=== PATIENT | male | born 1985 | race Caucasian/White ===

== ENCOUNTER 2017-12-02 17:42 | Emergency (ER) | payer MEDICAID ==
[~2017-12-02] VITALS: Ht 175.3 cm; Wt 70.8 kg
--- OUTSIDE RECORDS SUMMARY | ~2017-12-02 | XMS | Clinical Summary ---
Demographics + + + | Address | [address] | | | [place] [address] | + + + | Home Phone | | + + + | Preferred Language | Unknown | + + + | Marital Status | Single | + + + | Jehovah'S Witness Affiliation | Unknown | + + + | Race | Unknown | + + + | Ethnic Group | Unknown | + + + Author + + + | Author | [facility] | | | and [place] | + + + | Organization | [facility] | | | and [place] | + + + | Address | Unknown | + + + | Phone | Unavailable | + + + Support + + +---------+ + | Name | Relationship | Address | Phone | + + +---------+ + | SONIA SWAN ECON | Unknown | | + + +---------+ + Care Team Providers + +------+ + | Care Embossing Calender Operator Name | Role | Phone | + +------+ + PP | Unavailable | + +------+ + Allergies Not on File Current Medications Not on file Active Problems Not on file Social History + +-------+ +--------+------+ | Tobacco Use | Types | Packs/Day | Years | Date | | | | | Used | | + +-------+ +--------+------+ | Never Assessed | | | | | + +-------+ +--------+------+ + + + | Sex Assigned at | Date Recorded | | | | + + + | Not on file | | + + + Plan of Treatment + + + + + | Health Maintenance | Due Date | Last Done | Comments | + + + + + | Vaccine: | | | | | Dtap/Tdap/Td (1 - | 6 | | | | Tdap) | | | | + + + + + | Vaccine: Influenza | | | | | (#1) | 8 | | | + + + + + Results Not on filefrom Last 3 Months"
--- OUTSIDE RECORDS SUMMARY | ~2017-12-02 | XMS | Clinical Summary ---
Demographics + + + | Address | [address] | | | [place] [address] | + + + | Home Phone | | + + + | Preferred Language | Unknown | + + + | Marital Status | Single | + + + | Tenriism Affiliation | Unknown | + + + | Race | Unknown | + + + | Ethnic Group | Unknown | + + + Author + + + | Author | [facility] | | | and [place] | + + + | Organization | [facility] | | | and [...] Team Providers + +------+ + | Care Garnishment Specialist Name | Role | Phone | + [...]
[2017-12-02] MEDS ORDERED: IBUPROFEN200 M1 PO (18:00)
== END 2017-12-02 18:56 | disposition home or self-care (01) ==
LOC: ED 17:42
PROC: 0HQGXZZ Repair Left Hand Skin, External Approach (ICD-10-PCS; principal; 2017-12-02)
DX: S61.217A Laceration without foreign body of left little finger without damage to nail, initial encounter (principal); Z23 Encounter for immunization; W45.8XXA Other foreign body or object entering through skin, initial encounter
CPT/HCPCS: 12001; 90471; 90715; 99282

== ENCOUNTER 2024-07-14 16:21 | Emergency (ER) | payer OTHER ==
[~2024-07-14] VITALS: Ht 175.3 cm; Wt 63.2 kg
[~2024-07-14 16:21] MED LIST: IBUPROFEN200 M1 PO
[2024-07-14] MEDS ORDERED: CEFTRIAXONE SODIUM 2 GM VIAL ONE (18:14)
[2024-07-14] MEDS ORDERED: AZITHROMYCIN 500 MG in DEXTROSE 5% 250 ML IV ONE (18:15)
[2024-07-14] MEDS ORDERED: ondansetron HCL 4 MG/2 ML VIAL IV ONE ×2 (18:15→20:30)
[2024-07-14] MEDS ORDERED: CEFTRIAXONE SODIUM 2 GM in SODIUM CHLORIDE 0.9% 100 ML IV ONE (18:15)
[2024-07-14] MEDS ORDERED: ALBUTEROL/IPRATROPIUM 3 ML NEB INH ONE (18:15)
[2024-07-14] MEDS ORDERED: SODIUM CHLORIDE 0.9% 2,000 ML IV PRN (18:15)
[2024-07-14 18:24] LABS: BASOPHILS 0.2 % (0-2); EOSINOPHILS 0.1 % (0-6); HEMATOCRIT 46.4 % (35.0-50.0); HEMOGLOBIN 16.5 g/dL (12.0-18.0); LYMPHOCYTES 9.2 % (24-44); MCH 29.4 (27-36); MCHC 35.5 g/dl (30-36); MCV 82.8 fl (81-99); NEUTROPHILS 78.5 % (39-80); PLATELET COUNT 195 K/uL (140-440); RDW 13.3 (10.5-15.0)
[2024-07-14 18:40] LABS: PARTIAL THROMBOPLASTIN TIME 31.3 Sec (22.9-41.3); PROTIME 13.1 Sec (11.2-14.2)
[2024-07-14 18:43] LABS: ALBUMIN/GLOBULIN RATIO 1.05 (1.1-2.4); ANION GAP 17.4 (7-21); BILIRUBIN, TOTAL 0.7 mg/dL (0.2-1.0); BUN/CREATININE RATIO 6.74 (6.0-28.6); CALCIUM 8.9 mg/dL (8.5-10.1); CREATININE, SERUM 0.89 mg/dL (0.70-1.30); POTASSIUM 3.4 mmol/L (3.5-5.1); PROTEIN, TOTAL 7.8 g/dL (6.4-8.2)
[2024-07-14 18:48] LABS: LACTIC ACID, BLOOD 2.4 mmol/L (0.4-2.0)
[2024-07-14 20:28] LABS: LACTIC ACID, BLOOD 1.3 mmol/L (0.4-2.0)
[2024-07-14 20:30] LABS: BILIRUBIN, URINE NEGATIVE (negative); BLOOD/HGB, URINE NEGATIVE (Negative); KETONE, URINE SMALL (Negative); LEUK ESTERASE, URINE NEGATIVE (negative); NITRITE, URINE NEGATIVE (negative)
[2024-07-14 20:37] LABS: BACTERIA, URINE NONE SEEN /hpf (negative); CRYSTALS, URINE NONE SEEN (0-1+); EPITHELIAL CELLS, URINE NONE SEEN /lpf (0-1+); RED BLOOD CELLS, URINE 0-1 /hpf (0-5); WHITE BLOOD CELLS, URINE 0-1 /HPF (0-5)
[2024-07-14 20:38] LABS: CASTS, URINE NONE SEEN \\lpf; COLLECTION TYPE, URINE CLEAN CATCH; REFLEX CULTURE, URINE No (No)
[2024-07-14] MEDS ORDERED: ZITHROMAX250 MG PO ×2 (20:56→20:59)
[2024-07-14] MEDS ORDERED: AMOX TR-K CLV1 EAC1 PO ×2 (20:56→20:59)
[2024-07-14] MEDS ORDERED: ONDANSETRON ODT8 MG PO (20:57)
[2024-07-14] MEDS ORDERED: SODIUM CHLORIDE 0.9% 1,000 ML IV PRN (21:00)
[2024-07-14] MEDS ORDERED: PROCHLORPERAZINE EDISYLATE 10 MG/2 ML VIAL IV ONE (21:00)
[2024-07-14 21:23] VITALS: BP 133/81
== END 2024-07-14 21:30 | disposition home or self-care (01) ==
LOC: ED 16:21
PROVIDERS: Emergency Medicine
DX: J18.9 Pneumonia, unspecified organism (principal); H72.91 Unspecified perforation of tympanic membrane, right ear; H66.91 Otitis media, unspecified, right ear; R11.2 Nausea with vomiting, unspecified
CPT/HCPCS: 36415; 51701; 71045; 80053; 81001; 83605; 85025; 85610; 85730; 87040; 87077; 87186; 94640; 99284-25; J0456; J0696; J0780; J2405; J7060

== ENCOUNTER 2024-12-19 20:47 | Emergency (ER) | payer OTHER ==
[~2024-12-19] VITALS: Ht 175.3 cm; Wt 67.3 kg
[~2024-12-19 20:47] MED LIST changes: +AMOX TR-K CLV1 EAC1 PO; +ONDANSETRON ODT8 MG PO; +ZITHROMAX250 MG PO
[2024-12-19] MEDS ORDERED: IBUPROFEN 600 MG TAB PO ONE (21:15)
[2024-12-19] MEDS ORDERED: HYDROCODONE/ACETA 5/325 TAB PO ONE (22:30)
[2024-12-19] MEDS ORDERED: HYDROCODON-ACE1 EA10 PO (22:36)
[2024-12-19] MEDS ORDERED: HYDROCODONE BIT/ACETAMINOPHEN 5/325 MG 1 TAB HOME.PACK PO ONE (22:45)
[2024-12-19 22:52] VITALS: BP 118/76
== END 2024-12-19 22:54 | disposition home or self-care (01) ==
LOC: ED 20:47
DX: S90.02XA Contusion of left ankle, initial encounter (principal); J45.909 Unspecified asthma, uncomplicated; W20.8XXA Other cause of strike by thrown, projected or falling object, initial encounter
CPT/HCPCS: 73610; 73700; 99284-25; A9270